=== PATIENT | male | born 1985 | race Caucasian/White ===

== ENCOUNTER 2018-08-17 12:46 | Emergency (ER) | payer OTHER ==
[2018-08-17 12:55] VITALS: BP 129/72
--- NOTE | 2018-08-17 13:32 | ER Document Report ---
ED Medical Screen (RME) - General Chief Complaint: Rib Pain Stated Complaint: RIGHT SIDE PAIN Time Seen by Provider: 08/17/18 13:13 Mode of Arrival: Ambulatory Information source: Patient Notes: Patient states that he was performing martial arts with an opponent and was struck multiple times to the right lateral rib area. Patient states that he and the opponent ended up falling off an embankment landing about 8 feet down and complains of right lateral rib and side pain. Patient has pain with movement. I have greeted and performed a rapid initial assessment of this patient. A comprehensive ED assessment and evaluation of the patient, analysis of test results and completion of the medical decision making process will be conducted by additional ED providers. TRAVEL OUTSIDE OF THE [place] IN LAST 30 DAYS: No - Related Data Allergies/Adverse Reactions: No Known Allergies Allergy (Unverified 08/17/18 12:49) Physical Exam - Vital signs Vitals: Temp Pulse Resp BP Pulse Ox 98.6 F 75 15 129/72 H 98 08/17/18 12:54 08/17/18 12:54 08/17/18 12:54 08/17/18 12:54 08/17/18 12:54 - Abdominal Tenderness: Tender - Right lateral side tenderness, Guarding Course - Vital Signs Vital signs: Temp Pulse Resp BP Pulse Ox 98.6 F 75 15 129/72 H 98 08/17/18 12:54 08/17/18 12:54 08/17/18 12:54 08/17/18 12:54 08/17/18 12:54
[2018-08-17 14:19] LABS: ABSOLUTE EOSINOPHILS # (AUTO) 0.1 10^3/uL (0.0-0.6); ABSOLUTE LYMPHOCYTES (AUTO) 1.4 10^3/uL (0.5-4.7); ABSOLUTE MONOCYTES (AUTO) 0.7 10^3/uL (0.1-1.4); ABSOLUTE NEUT (AUTO) 4.1 10^3/uL (1.7-8.2); BASOPHILS % (AUTO) 0.6 % (0-2); EOSINOPHILS % (AUTO) 2.3 % (0-6); HEMATOCRIT 44.8 % (37.9-51.0); HEMOGLOBIN 15.4 g/dL (13.5-17.0); LYMPHOCYTES % (AUTO) 22.2 % (13-45); MEAN CORPUSCULAR HEMOGLOBIN 32.8 pg (27.0-33.4); MEAN CORPUSCULAR HGB CONC 34.3 g/dL (32.0-36.0); MEAN CORPUSCULAR VOLUME 96 fl (80-97); MONOCYTES % (AUTO) 11.2 % (3-13); PLATELET COUNT 163 10^3/uL (150-450); RED BLOOD COUNT 4.68 10^6/uL (4.35-5.55); RED CELL DISTRIBUTION WIDTH 13.6 % (11.5-14.0); SEGMENTED NEUTROPHILS % (AUTO) 63.7 % (42-78); TOTAL CELLS COUNTED % (AUTO) 100 %; WHITE BLOOD COUNT 6.4 10^3/uL (4.0-10.5)
--- NOTE | 2018-08-17 14:32 | RADIOLOGY REPORT (SQ) ---
EXAM DESCRIPTION: CT CHEST WITH; CT ABD/PELVIS WITH IV ONLY COMPLETED DATE/TIME: 08/17/2018 2:19 pm REASON FOR STUDY: fall, rib/side pain injured doing martial arts 2 days ago, right-sided chest and a bdominal pain COMPARISON: None. CONTRAST TYPE AND DOSE: contrast/concentration: Isovue 350.00 mg/ml; Total Contrast Delivered: 100.0 ml; Total Saline Delivered: 66.8 ml RENAL FUNCTION: GFR > 60. TECHNIQUE: CT scan of the chest performed using helical scanning technique with dynamic intravenous contrast injection. Images reviewed with lung, soft tissue and bone windows. Reconstructed coronal a nd sagittal MPR images reviewed. All images stored on PACS. CT scan of the abdomen and pelvis performed with intravenous and without oral contrastusing helical s ehsan technique with dynamic intravenous contrast injection. Images reviewed with lung, soft tissu e and bone windows. Reconstructed coronal and sagittal MPR images reviewed. Delayed images for eval uation of the urinary system also acquired and evaluated. All images stored on PACS. All CT scanners at this facility use dose modulation, iterative reconstruction, and/or weight based d osing when appropriate to reduce radiation dose to as low as reasonably achievable (ALARA). [facility]: Dose Right [facility]: CareDose [facility]: Dose Right [facility]: Teradose 4D [facility]: [email or web address] RADIATION DOSE: CT Rad equipment meets quality standard of care and radiation dose reduction techniq ues were employed. CTDIvol: 12.6 - 16.3 mGy. DLP: 1918 mGy-cm. . LIMITATIONS: None. FINDINGS: CHEST: LUNGS AND PLEURA: No opacities, nodules, masses. No pneumothorax. No effusions. HILAR AND MEDIASTINAL STRUCTURES: No identified masses or abnormal nodes. HEART AND VASCULAR STRUCTURES: No aneurysm or dissection. No central pulmonary emboli. No pericardi al effusion. HARDWARE: None. THYROID AND OTHER SOFT TISSUES: No masses. No adenopathy. BONES: No significant finding. OTHER: No other significant finding. ABDOMEN AND PELVIS: LIVER: Normal size. No masses. No dilated ducts. SPLEEN: Normal size. No focal lesions. PANCREAS: No masses. No significant calcifications. No adjacent inflammation or peripancreatic fluid collections. Pancreatic duct not dilated. GALLBLADDER: No identified stones by CT criteria. No inflammatory changes to suggest cholecystitis. ADRENAL GLANDS: No significant masses or asymmetry. RIGHT KIDNEY AND URETER: No solid masses. No significant calcification. No hydronephrosis or hydroure ter. LEFT KIDNEY AND URETER: No solid masses. No significant calcification. No hydronephrosis or hydrouret er. AORTA AND VESSELS: No aneurysm. No dissection. Renal arteries, SMA, celiac without stenosis. RETROPERITONEUM: No retroperitoneal adenopathy, hemorrhage or masses. BOWEL AND PERITONEAL CAVITY: No masses or inflammatory changes. No free fluid or peritoneal masses. APPENDIX: Normal. ABDOMINAL WALL: No masses. No hernias. PELVIS: No mass or free fluid. Normal bladder. BONES: No significant or acute findings. OTHER: No other significant finding. IMPRESSION: NORMAL CT OF THE CHEST WITH IV CONTRAST. NORMAL CT OF THE ABDOMEN AND PELVIS WITH ORAL AND INTRAVENOUS CONTRAST. TECHNICAL DOCUMENTATION: JOB ID: [id number] Quality ID # [id number]: Final reports with documentation of one or more dose reduction techniques (e.g., Au tomated exposure control, adjustment of the mA and/or kV according to patient size, use of iterative reconstruction technique) 2010 [employer]- All Rights Reserved Reading location - IP/workstation name: [email or web address]
[2018-08-17 14:42] LABS: ALANINE AMINOTRANSFERASE 37 U/L (21-72); ALBUMIN 4.4 g/dL (3.5-5.0); ALKALINE PHOSPHATASE 54 U/L (38-126); ANION GAP 9 (5-19); ASPARTATE AMINO TRANSFERASE 30 U/L (17-59); BILIRUBIN,DIRECT 0.2 mg/dL (0.0-0.4); BILIRUBIN,TOTAL 0.4 mg/dL (0.2-1.3); BLOOD UREA NITROGEN 13 mg/dL (7-20); CARBON DIOXIDE 29 mmol/L (22-30); CHLORIDE 103 mmol/L (98-107); GLUCOSE 78 mg/dL (75-110); LIPASE 82.7 U/L (23-300); POTASSIUM 4.6 mmol/L (3.6-5.0); SODIUM 141.2 mmol/L (137-145); TOTAL PROTEIN 7.6 g/dL (6.3-8.2)
--- NOTE | 2018-08-17 14:43 | ER Document Report ---
ED General - General Chief Complaint: Rib Pain Stated Complaint: RIGHT SIDE PAIN Time Seen by Provider: 08/17/18 13:13 Mode of Arrival: Ambulatory Information source: Patient Notes: Patient is a 33-year-old male which can really annoyed me today comes emergency room with complaint of right sided pain. Patient states he was pressing martial arts and got either tackled her kicked and then fell down an 8 foot embankment. States that his partner may have landed on his right ribs and abdominal area. States that since that time is progressively gotten more difficult to breathe or move or do any type of function without it hurting. He denies any history of injuries in the past. He has a history of chronic back pain with herniations at L4-L5 which she deals with daily. States that he is not really short of breath just hurts to take a deep breath. Anything else he does like coughing sneezing moving lifting all of this increases the amount of discomfort he feels. TRAVEL OUTSIDE OF THE [place] IN LAST 30 DAYS: No - HPI Onset: Other - 2 days ago Onset/Duration: Sudden, Persistent, Worse Quality of pain: Sharp, Throbbing Severity: Moderate Pain Level: 3 Associated symptoms: Chest pain, Hurts to breath Exacerbated by: Supine, Sitting, Standing, Movement, Walking, Coughing, Deep breathing Relieved by: Other - Position Similar symptoms previously: No Recently seen / treated by doctor: No - Related Data Allergies/Adverse Reactions: No Known Allergies Allergy (Unverified 08/17/18 12:49) Past Medical History - General Information source: Patient - Social History Smoking Status: Never Smoker Cigarette use (# per day): No Chew tobacco use (# tins/day): No Smoking Education Provided: No Frequency of alcohol use: None Drug Abuse: None Lives with: Family Family History: Reviewed & Not Pertinent Patient has suicidal ideation: No Patient has homicidal ideation: No Renal/ Medical History: Denies: Hx Peritoneal Dialysis Review of Systems - Review of Systems Constitutional: No symptoms reported EENT: No symptoms reported Cardiovascular: Chest pain Respiratory: Hurts to breathe Gastrointestinal: Abdominal pain Genitourinary: No symptoms reported Male Genitourinary: No symptoms reported Musculoskeletal: No symptoms reported Skin: No symptoms reported Hematologic/Lymphatic: No symptoms reported Neurological/Psychological: No symptoms reported -: Yes All other systems reviewed and negative Physical Exam - Vital signs Vitals: Temp Pulse Resp BP Pulse Ox 98.6 F 75 15 129/72 H 98 08/17/18 12:54 08/17/18 12:54 08/17/18 12:54 08/17/18 12:54 08/17/18 12:54 Interpretation: Normal - Notes Notes: Patient is well-nourished well-developed 33-year-old male who is in no apparent distress but does appear somewhat uncomfortable - General General appearance: Alert - HEENT Head: Normocephalic, Atraumatic Eyes: Normal - Respiratory Respiratory status: No respiratory distress Chest status: Tender, Pain on movement, Pain with cough, Pain with deep breathing, Splinting, Other - Physical examination patient's chest particularly the right side shows no ecchymosis and no abrasions. There is tenderness between the intercostal spaces around ribs 789 anterior lateral.. No: No pleuritic chest pain, Wounds, Accessory muscle use, Prolonged expirations Breath sounds: Normal Chest palpation: Normal - Cardiovascular Rhythm: Regular Heart sounds: Normal auscultation Murmur: No - Abdominal Inspection: Normal Distension: No distension Bowel sounds: Normal Tenderness: Tender, Other - Examination of the abdomen shows some mild tenderness right upper quadrant to palpation. The liver margins feel normal. The does not appear to be any fullness surrounding the liver margins. Adult front & back diagram: 1 - Area of discomfort - Back Back: Tender, Vertebra tenderness. No: Deformity/step-off, CVA tenderness - Extremities General upper extremity: Normal inspection, Nontender, Normal ROM, Normal strength General lower extremity: Normal inspection, Nontender, Normal ROM, Normal strength, Normal weight bearing Shoulder: Normal, Nontender - Neurological Neuro grossly intact: Yes Cognition: Normal Orientation: AAOx4 Jessica Coma Scale Eye Opening: Spontaneous Marion Coma Scale Verbal: Oriented Jessica Coma Scale Motor: Obeys Commands Marion Coma Scale Total: 15 Speech: Normal - Skin Skin Temperature: Warm Skin Moisture: Dry Skin Color: Normal, Helix Course - Re-evaluation Re-evalutation: 08/17/18 14:45 After reviewing patient's CTs with contrast there normal. There are no bone abnormalities or organ abnormalities. I am going to recommend to him incentive spirometer and will discuss with him options for pain control. Patient that she really just wants use muscle relaxer and ibuprofen. I explained to him he could still take 1-2 weeks for him to really not notice it much anymore. He does not want the incentive spirometer but promises he will take deep breaths. 08/17/18 14:47 - Vital Signs Vital signs: Temp Pulse Resp BP Pulse Ox 98.6 F 75 15 129/72 H 98 08/17/18 12:54 08/17/18 12:54 08/17/18 12:54 08/17/18 12:54 08/17/18 12:54 - Laboratory Result Diagrams: 08/17/18 14:04 08/17/18 14:04 Discharge - Discharge Clinical Impression: Costochondritis, acute Contusion, chest wall Qualifiers: Encounter type: initial encounter Laterality: right Qualified Code(s): S20.211A - Contusion of right front wall of thorax, initial encounter Condition: Stable Disposition: HOME, SELF-CARE Instructions: Rib Contusion ([facility]), Costochondritis ([facility]) Additional Instructions: As we discussed it hurts just as much improved ribs as it does to break them. And it may take 1-2 weeks for this to totally heal itself. Ice to the area 3 times a day. Highly suggest not doing any contact sports at least for the next week or 10 days. As we have also discussed you must make herself take deep breaths and to do so you can apply pressure to the area before you take the deep breath. I have given you the muscle relaxers and ibuprofen for the discomfort and pain. Should you have any concerns or problems return to ER for recheck. Prescriptions: Ibuprofen 800 mg PO TID #30 tablet Methocarbamol [Robaxin 750 mg Tablet] 750 mg PO ASDIR PRN #30 tablet PRN Reason:
== END 2018-08-17 15:00 | disposition home or self-care (01) ==
LOC: ER 12:46
DX: M94.0 Chondrocostal junction syndrome [Tietze] (principal); S20.211A Contusion of right front wall of thorax, initial encounter; R10.9 Unspecified abdominal pain; X58.XXXA Exposure to other specified factors, initial encounter
CPT/HCPCS: 36415; 71260; 74177; 80053; 83690; 85025; 99283